=== PATIENT | male | born 1985 | race Caucasian/White ===

== ENCOUNTER 2018-02-11 18:45 | Emergency (ER) | payer OTHER ==
[2018-02-11 19:04] VITALS: BP 109/65
--- NOTE | 2018-02-11 19:11 | UC ---
Throat Pain/Nasal Nakul HPI - HPI Summary HPI Summary: 32 year old male with concern for sinus infection . DAY 8 of sinus / NASAL CONGESTION, BLOOD TINGED MUCOUS, COUGH.no fever. no headaches. being treat with Abx for sinus infection at home at this time. [ End ] - History of Current Complaint Chief Complaint: UCGeneralIllness Stated Complaint: SINUSES Time Seen by Provider: 02/11/18 19:06 Hx Obtained From: Patient Onset/Duration: Gradual Onset Severity: Moderate Pain Intensity: 0 Cough: Sputum Appears - green yello - Allergies/Home Medications Allergies/Adverse Reactions: Allergies Allergy/AdvReac Type Severity Reaction Status Date / Time NSAIDS (Non-Steroidal AdvReac See Comment Verified 02/11/18 19:05 Anti-Inflamma Home Medications: Home Medications ValACYclovir (*) [Valtrex 500 mg (*)] 500 mg PO DAILY 02/11/18 [History Confirmed 02/11/18] PMH/Surg Hx/FS Hx/Imm Hx Previously Healthy: Yes - Surgical History Surgical History: None Surgery Procedure, Year, and Place: denies - Family History Known Family History: Negative: Respiratory Disease - Social History Occupation: Employed Full-time Alcohol Use: Weekly Substance Use Type: None Smoking Status (MU): Never Smoked Tobacco - Immunization History Most Recent Tetanus Shot: 10 yrs ago Review of Systems Constitutional: Fatigue ENT: Sore Throat, Ear Ache, Nasal Discharge, Sinus Congestion, Sinus Pain/ Tenderness Respiratory: Cough Is Patient Immunocompromised?: No All Other Systems Reviewed And Are Negative: Yes Physical Exam Triage Information Reviewed: Yes Appearance: Well-Appearing, No Pain Distress, Well-Nourished Vital Signs: Initial Vital Signs Temp 98.4 F 02/11/18 18:59 Pulse 78 02/11/18 18:59 Resp 16 02/11/18 18:59 BP 109/65 02/11/18 18:59 Pulse Ox 97 02/11/18 18:59 Eye Exam: Normal ENT Exam: Normal ENT: Positive: TM dull, Sinus tenderness Dental Exam: Normal Neck exam: Normal Neck: Positive: 1 Respiratory Exam: Normal Cardiovascular Exam: Normal Musculoskeletal Exam: Normal Neurological Exam: Normal Psychological Exam: Normal Skin Exam: Normal Throat Pain/Nasal Course/Dx - Differential Dx/Diagnosis Differential Diagnosis/HQI/PQRI: Otitis Media, Pharyngitis, Sinusitis, Tonsillitis, URI Provider Diagnoses: sinusitis Discharge - Discharge Plan Condition: Good Disposition: HOME Prescriptions: Amoxicillin/Clavulanate TAB* [Augmentin TAB 875*] 875 mg PO BID #20 tab Patient Education Materials: Sinusitis (ED) Referrals: Heraclio Mace MD [Primary Care Provider] - 4 Days Additional Instructions: As we discussed please start flonase in the AM and the Netti Pot / Sinus Rinse in the PM for a few days and if your symptoms worsen or persist then you may start the antibiotics at that time
== END 2018-02-11 19:30 | disposition home or self-care (01) ==
LOC: UCCORT 18:45
DX: J34.89 Other specified disorders of nose and nasal sinuses (principal); Z88.8 Allergy status to other drugs, medicaments and biological substances
CPT/HCPCS: 99212; G0463

== ENCOUNTER 2018-06-27 10:52 | Emergency (ER) | payer OTHER ==
[2018-06-27 11:12] VITALS: BP 118/53
[2018-06-27] MEDS ORDERED: HYDROcodone/ACETAMIN 5-325 MG* 1 TAB PO ONE (11:22)
--- NOTE | 2018-06-27 11:23 | UC ---
Truncal Trauma HPI - HPI Summary HPI Summary: Was catching a calf and was dragged and hit left side of the chest on the ground. C/O pain with breathing. - History Of Current Complaint Chief Complaint: UCBackPain Stated Complaint: LEFT SIDE RIBS/CHEST,BACK PAIN (INJURY) Time Seen by Provider: 06/27/18 11:13 Hx Obtained From: Patient Onset/Duration: Sudden Onset - approximately 30 minutes ago. Onset Of Pain: Immediate Severity Initially: Severe Severity Currently: Severe Pain Intensity: 10 Mechanism Of Injury: Blunt Trauma, Fall From A Standing Position Aggravating Factor(s): Movement, Deep Breathing Alleviating factor(s): Shallow Breathing Associated Signs And Symptoms: Positive: Chest Pain - Allergies/Home Medications Allergies/Adverse Reactions: Allergies Allergy/AdvReac Type Severity Reaction Status Date / Time NSAIDS (Non-Steroidal AdvReac See Comment Verified 06/27/18 11:09 Anti-Inflamma Home Medications: Home Medications Acetaminophen [Tylenol Extra Strength] 975 mg PO ONCE 06/27/18 [History Confirmed 06/27/18] PMH/Surg Hx/FS Hx/Imm Hx GI/ History: Ulcer - Surgical History Surgical History: None Surgery Procedure, Year, and Place: denies - Family History Known Family History: Negative: Hypertension, Diabetes, Respiratory Disease - Social History Occupation: Employed Full-time Lives: With Family Alcohol Use: Occasionally Substance Use Type: None Smoking Status (MU): Never Smoked Tobacco - Immunization History Most Recent Tetanus Shot: 10 yrs ago Review of Systems Cardiovascular: Chest Pain Is Patient Immunocompromised?: No All Other Systems Reviewed And Are Negative: Yes Physical Exam Triage Information Reviewed: Yes Appearance: Well-Appearing, Well-Nourished, Pain Distress - obvious pain Vital Signs: Initial Vital Signs Temp 98.2 F 06/27/18 11:05 Pulse 80 06/27/18 11:05 Resp 19 06/27/18 11:05 BP 118/53 06/27/18 11:05 Pulse Ox 100 06/27/18 11:05 Vital Signs Reviewed: Yes Eyes: Positive: Conjunctiva Clear Neck: Positive: Supple, Nontender Respiratory: Positive: Lungs clear - with splinting respirations.. Negative: Chest non-tender - Tenderness around the left chest wall anterior/ lateral and posterior. Cardiovascular Exam: Normal Musculoskeletal Exam: Normal Neurological Exam: Normal Psychological Exam: Normal Skin Exam: Normal Diagnostics - Radiology No standard instances Xray Interpretation: No Acute Changes Radiology Interpretation Completed By: ED Physician, Radiologist Truncal Trauma Course/Dx - Differential Dx/Diagnosis Differential Diagnosis/HQI/PQRI: Abdominal Wall Contusion, Cardiac Contusion, Chest Wall Contusion, Chest Wall Abrasion Provider Diagnoses: Chest wall contusion. Discharge - Sign-Out/Discharge Documenting (check all that apply): Patient Departure - Discharge Plan Condition: Stable Disposition: HOME Prescriptions: HYDROcodone/ACETAMIN 5-325 MG* [[place] 5-325 TAB*] 1 tab PO Q4H PRN #30 tab MDD 6 PRN Reason: Pain - Chest Patient Education Materials: Rib Contusion (ED), Hydrocodone/Acetaminophen (By mouth) Referrals: Heraclio Mace MD [Primary Care Provider] - - Billing Disposition and Condition Condition: STABLE Disposition: Home
--- NOTE | 2018-06-27 11:51 | RAD ---
INDICATION: Left rib injury COMPARISON: Chest July 21, 2012 TECHNIQUE: Multiple views of the ribs were obtained. FINDINGS: Bones: There is no evidence of acute rib fracture. LUNGS: The lungs are clear. There is no pneumothorax. Pleural spaces: There is no evidence of hemothorax. Other: None IMPRESSION: NO ACUTE RIB FRACTURE. LUNGS CLEAR.
== END 2018-06-27 12:08 | disposition home or self-care (01) ==
LOC: UCCORT 10:52
DX: S20.212A Contusion of left front wall of thorax, initial encounter (principal); W22.8XXA Striking against or struck by other objects, initial encounter; Y93.89 Activity, other specified; Y92.9 Unspecified place or not applicable; Z88.6 Allergy status to analgesic agent
CPT/HCPCS: 99212; G0463

== ENCOUNTER 2019-12-28 19:43 | Emergency (ER) | payer OTHER ==
[2019-12-28 20:14] VITALS: BP 127/73
[2019-12-28] MEDS ORDERED: Amoxicillin PO (*) 500 MG CAP PO ONE (21:23)
[2019-12-28] MEDS ORDERED: Neomyc/Polym/HC 1% OTIC SUSP* **OTIC RIGHT EAR ONE (21:23)
--- NOTE | 2019-12-28 21:24 | UC ---
Ear Complaint HPI - HPI Summary HPI Summary: 34-year-old male comes in with a chief complaint of bilateral ear irritation worse on the right and left. He's also had some rhinorrhea. Feels like there are bubbles in his right ear. Does have some postnasal drip. No complaint of any chest congestion or shortness of breath. - History of Current Complaint Chief Complaint: UCEar Stated Complaint: BILATERAL EAR PAIN Time Seen by Provider: 12/28/19 20:33 Pain Intensity: 4 - Allergies/Home Medications Allergies/Adverse Reactions: Allergies Allergy/AdvReac Type Severity Reaction Status Date / Time NSAIDS (Non-Steroidal AdvReac See Comment Verified 12/28/19 20:14 Anti-Inflamma Home Medications: Home Medications NK [No Home Medications Reported] 12/28/19 [History Confirmed 12/28/19] PMH/Surg Hx/FS Hx/Imm Hx Previously Healthy: Yes - history of stomach ulcer. - Surgical History Surgical History: None Surgery Procedure, Year, and Place: denies - Family History Known Family History: Negative: Hypertension, Diabetes, Respiratory Disease - Social History Alcohol Use: Occasionally Substance Use Type: None Smoking Status (MU): Never Smoked Tobacco - Immunization History Most Recent Tetanus Shot: 10 yrs ago Review of Systems All Other Systems Reviewed And Are Negative: Yes Constitutional: Positive: Other - SEE HPI Skin: Positive: Negative Eyes: Positive: Negative ENT: Positive: Sore Throat, Ear Ache, Nasal Discharge, Sinus Congestion Respiratory: Positive: Negative Cardiovascular: Positive: Negative Gastrointestinal: Positive: Negative Motor: Positive: Negative Neurovascular: Positive: Negative Musculoskeletal: Positive: Negative Neurological: Positive: Negative Psychological: Positive: Negative Is Patient Immunocompromised?: No Physical Exam Triage Information Reviewed: Yes Appearance: Well-Appearing, No Pain Distress, Well-Nourished Vital Signs: Initial Vital Signs Temp 97.5 F 12/28/19 20:09 Pulse 70 12/28/19 20:09 Resp 17 12/28/19 20:09 BP 127/73 12/28/19 20:09 Pulse Ox 96 12/28/19 20:09 Vital Signs Reviewed: Yes Eye Exam: Normal Eyes: Positive: Conjunctiva Clear ENT: Positive: Pharyngeal erythema, Nasal congestion, Nasal drainage, Other - Right TM is erythematous. There is some cerumen in the right ear canal. Left ear canal and TM are normal. Neck: Positive: Supple Respiratory: Positive: Lungs clear, Normal breath sounds, No respiratory distress Cardiovascular: Positive: RRR Musculoskeletal: Positive: Strength Intact, ROM Intact Neurological: Positive: Alert, Muscle Tone Normal Psychological: Positive: Age Appropriate Behavior Skin Exam: Normal Ear Complaint Course/Dx - Course Course Of Treatment: The right ear canal was irrigated by nursing [facility] with removal of cerumen. - Differential Dx/Diagnosis Provider Diagnosis: Right otitis media, Right otitis externa, Excessive cerumen in right ear canal Discharge ED - Sign-Out/Discharge Documenting (check all that apply): Patient Departure All imaging exams completed and their final reports reviewed: No Studies - Discharge Plan Condition: Stable Disposition: HOME Patient Education Materials: Otitis Externa (ED), Ear Infection (ED) Referrals: Heraclio Mace MD [Primary Care Provider] - Additional Instructions: FOLLOW UP WITH YOUR DOCTOR IF NOT COMPLETELY IMPROVED. GET REEVALUATED SOONER IF NOT IMPROVING OR WORSE OR ANY QUESTIONS OR CONCERNS. - Billing Disposition and Condition Condition: STABLE Disposition: Home
== END 2019-12-28 21:34 | disposition home or self-care (01) ==
LOC: UCCORT 19:43
DX: H66.91 Otitis media, unspecified, right ear (principal); H60.91 Unspecified otitis externa, right ear; H61.21 Impacted cerumen, right ear; Z88.6 Allergy status to analgesic agent
CPT/HCPCS: 99213; A9270-GY; G0463